=== PATIENT | male | born 1960 | race Two or more races ===

== ENCOUNTER → 2017-10-31 | Day surgery (SDC) | payer BC ==
[~2017-10-31] MED LIST: LIDOCAINE HCL/PF 1% 30 ML SDV ONE; methylPREDNISolone ACETATE 80 MG/ML VIAL ONE
== END | disposition home or self-care (01) ==
LOC: DS 08:16
PROVIDERS: ATTEND Specialist
DX: S83.242A Other tear of medial meniscus, current injury, left knee, initial encounter (principal); S83.282A Other tear of lateral meniscus, current injury, left knee, initial encounter; M94.262 Chondromalacia, left knee; X58.XXXA Exposure to other specified factors, initial encounter; Y93.89 Activity, other specified; Y92.89 Other specified places as the place of occurrence of the external cause; Y99.8 Other external cause status; I10 Essential (primary) hypertension; Z79.899 Other long term (current) drug therapy; Z98.890 Other specified postprocedural states
CPT/HCPCS: A4217; A6253; A6402; J0690; J1040; J1100; J1885; J2405; J2704; J3490